=== PATIENT | female | born 1950 | race Caucasian/White ===

== ENCOUNTER → 2017-01-30 | Outpatient (CLI) | payer OTHER ==
[~2017-01-30] MED LIST: ASPI81TA28 PO; CITA40TA4 PO; DNSIS60 SQ; GABA600T PO; HYG/25 PO; MELO15TA4 PO; MELO7.5T5 PO; TRAZ100T29 PO; VRP40 PO; [UNRECOGNIZED DRUG - CODE] PO
--- NOTE | 2017-01-30 16:25 | MAMMOGRAPHY REPORT ---
BREAST MRI OF BOTH BREASTS : 01/30/2017 CLINICAL HISTORY: 67-year-old woman with bilateral subglandular silicone implants. Evaluate implant integrity. COMPARISON: Comparison is made to prior mammograms dated: 07/02/2007 and 05/27/2010. TECHNIQUE: The patient was placed in the prone position in a 1.5 Anisha magnet using a dedicated sam st coil. After a 3 plane localizing sequence, axial T2 STIR, axial T1 without fat saturation, axial T2 with fat saturation, sagittal T2 STIR, sagittal T2 FSE with fat saturation and axial T2 FSE with fat saturation images were obtained. No contrast was administered. FINDINGS: Bilateral subglandular silicone implants are identified. There is evidence of intracapsul ar and extracapsular rupture bilaterally. The largest amount of extracapsular silicone is located a long the superior and inferior aspects of the left implant, and along the inferolateral posterior as pect of the right implant. No suspicious axillary lymphadenopathy is seen bilaterally. IMPRESSION: ACR BI-RADS CATEGORY 2: BENIGN 1. Intracapsular and extracapsular rupture of bilateral subglandular silicone implants. 2. No suspicious axillary lymphadenopathy. 3. Mammograms have not been performed at this institution since 2009. If they have not been perfor med at an outside institution, would recommend annual screening mammograms, as mammography is the go ld standard for reducing breast cancer mortality. The patient will receive written notification of the results. Ruthie Palacios M.D. ay/:01/30/2017 15:33:26 [employer]: recreation leader, [facility] letter sent: Normal 1/2 BI-RADS Code: ACR BI-RADS Category 2: Benign
== END | disposition home or self-care (01) ==
LOC: C.MRI 09:38
PROVIDERS: ATTEND Plastic Surgery
DX: T85.49XA Other mechanical complication of breast prosthesis and implant, initial encounter (principal); Y83.1 Surgical operation with implant of artificial internal device as the cause of abnormal reaction of the patient, or of later complication, without mention of misadventure at the time of the procedure

== ENCOUNTER → 2017-03-23 | Outpatient (CLI) | payer OTHER ==
[2017-03-23 13:18] LABS: HEMATOCRIT 43.4 % (37-47); MEAN CELL VOLUME 92.9 fL (80-100); MEAN CORPUSCULAR HEMOGLOBIN 31.3 pg (25-34); MEAN CORPUSCULAR HGB CONC 33.6 g/dl (32-36); MEAN PLATELET VOLUME 9.1 fL (7.4-10.4); PLATELET COUNT 220 K/uL (130-400); RED BLOOD COUNT 4.67 M/uL (4.2-5.4); WHITE BLOOD COUNT 6.58 K/uL (4.8-10.8)
[2017-03-23 13:24] LABS: INR 1.1 (0.9-1.1); PARTIAL THROMBOPLASTIN RATIO 1.1; PROTHROMBIN TIME (PATIENT) 11.8 SECONDS (9.0-12.0)
[2017-03-23 13:41] LABS: POTASSIUM 4.2 mmol/L (3.5-5.1)
== END | disposition home or self-care (01) ==
LOC: C.CPL 12:31
PROVIDERS: ATTEND Physician Assistant
DX: Z01.810 Encounter for preprocedural cardiovascular examination (principal); Z01.812 Encounter for preprocedural laboratory examination

== ENCOUNTER → 2017-04-07 | Day surgery (SDC) | payer OTHER ==
[2017-03-24 14:00] VITALS: Ht 170.2 cm; Wt 61.4 kg
[~2017-04-07] VITALS: Ht 170.2 cm; Wt 61.4 kg
[~2017-04-07] MED LIST changes: +ACETAMINOPHEN 325 MG TAB PO PRN; +ATROPINE SULFATE 0.1 MG/ML 5ML SYR IV PRN; +BACITRACIN 50000 UNIT VIAL ONE; +BUPIVACAINE 0.25% 2.5MG/ML PF 10 ML VIAL ONE; +CEFAZOLIN 2000 MG/60 ML D5W IV SCH; +CEFAZOLIN SOD 1 GM VIAL ONE; +EpHEDrine SULFATE 50MG/5ML SYR ONE; +EpHEDrine SULFATE INJ 50 MG/ML AMP IV PRN; +EpHEDrine SULFATE INJ 50 MG/ML AMP ONE; +FENTANYL CITRATE INJ 50 MCG/1 ML 2 ML VIAL IV PRN; +FENTANYL CITRATE INJ 50 MCG/1 ML 2 ML VIAL ONE; +GENTAMICIN SULFATE 40 MG/ML 2 ML VIAL ONE; +LACTATED RINGER'S 1000ML 1,000 ML IV SCH; +LIDOCAINE HCL 2% 2 ML VIAL (20MG/ML) ONE; +LIDOCAINE/EPINEPHRINE 1% INJ 50 ML VIAL ONE; -MELO7.5T5 PO; +METOCLOPRAMIDE HCL INJ 5 MG/ML 2 ML VIAL IV PRN; +MIDAZOLAM HCL 1 MG/ML 2ML VIAL ONE; +ONDANSETRON INJ 2 MG/ML 2 ML VIAL IV PRN; +ONDANSETRON INJ 2 MG/ML 2 ML VIAL ONE; +OXYCODONE/ACETAMINOPHEN 5-325 TAB PO PRN; +PROPOFOL IV EMULSION 10 MG/ML 20 ML VIAL IV ONE; +SODIUM CHLORIDE 0.9% 1000ML 1,000 ML IV SCH; +SODIUM CHLORIDE 0.9% INJ 10 ML VIAL ONE; +WATER, STERILE FOR INJ 10 ML VIAL ONE
--- NOTE | 2017-04-07 09:06 | History & Physical Bridge - SC ---
H&P Re-Evaluation Bridge Note: I have examined the patient, reviewed the History & Physical and in the interval since the performance of the History & Physical I have noted the following changes of clinical significance: No changes noted
--- NOTE | 2017-04-07 12:47 | [facility] Post Operative Brief Note ---
Immediate Operative Summary Operative Date Apr 07, 2017. Pre-Operative Diagnosis Bilateral Intra & Extracapsular Rupture Silicone Implant Post-Operative Diagnosis Same Procedure(s) Performed Bilateral Capsulectomy With Breast Implant Replacement Using Silicone Gel- Filled Implants Surgeon Dr. Donovan Painter Airbrush Surgeon(s) Brenna Silvestre PA-C Estimated Blood Loss 20 ml Findings bilateral intra and extracapsular rupture, extensive calcifications Specimens A.) Ruptured Breast Implant & Capsule- Left B.) Ruptured Breast Implant & Capsule- Right Anesthesia general Complication(s) None Disposition Recovery Room / PACU
--- NOTE | 2017-04-07 12:51 | Discharge Instructions ---
Discharge Instructions Date of Service Apr 07, 2017. Admission Reason for Admission: B/L Intra & Extracapsular Rupture Silicone Implant Discharge Discharge Diagnosis / Problem: Breast Implant Rupture Discharge Goals Goal(s): Decrease discomfort Activity Recommendations Activity Limitations: per Instructions/Follow-up section ACTIVITY RECOMMENDATIONS: __Normal activities _x_No bending, lifting or straining __No driving __Driving allowed when you are off pain medications _x_Walking permitted __You should have help at home for ___ days DRESSINGS: __No dressings required _x_Keep dressings dry/in place until first office visit. Continue to wear bra __Remove dressings ___ and leave dressings off __Apply ice ___ days __Remove dressings and reapply garment __Apply antibiotic ointment (Bacitracin, Neosporin, etc) to wounds 3-4 times/ day for 10 days BATHING: _x_Keep dressings dry _x_Sponge bathing permitted __Showering permitted _x_No swimming, hot tubs or soaking in a tub MEDICATIONS: Resume previous medications unless instructed otherwise by your surgeon. _x_Do not use aspirin, Motrin, Advil or Ibuprofen as these may promote bleeding. Please use Tylenol. _x_Prescription(s) provided: antibiotics provided at your last office visit. Please start these today. A script for pain medication was also provided in your folder OTHER INSTRUCTIONS: __Record drain output 2-3 times per day SPECIAL CARE INSTRUCTIONS: * It is normal to have a mild fever after surgery. If your temperature is higher than 101.5 degrees F, please call the office at [phone]. * Constipation is a typical side effect of pain medication. An over-the- counter stool softener will help relieve this. * Leaking around surgical drains may occur and should not cause concern. Sometimes these drains become clogged. If this happens, remove the bulb and milk the clot out of the tube, then replace the bulb. * Drainage from wounds after liposuction is normal and should be expected. Garments will become soiled. You should protect furniture and bedding. This drainage should mostly subside within 2-3 days. Leave garments in place unless instructed to remove them. * If you have unusual drainage from a wound or are concerned you have an infection or have any questions or concerns, please call the office at [phone]. FOLLOW UP VISIT: If not already scheduled, please call the office, , when you return home after surgery to schedule an appointment to be seen in _3__ days. . Current Hospital Diet Patient's current hospital diet: Discharge Diet Recommended Diet: Regular Diet Procedures Procedures Performed: Bilateral Capsulectomy With Breast Implant Replacement Using Silicone Gel- Filled Implants Pending Studies Studies pending at discharge: yes List of pending studies: pathology Medical Emergencies . Who to Call and When: Medical Emergencies: If at any time you feel your situation is an emergency, please call 911 immediately. . Non-Emergent Contact Non-Emergency issues call your: Primary Care Provider, Surgeon . "Provider Documentation" section prepared by Angi Silvestre. . VTE Core Measure Inpt VTE Proph given/why not?: SCD's [place] Drug Monitoring Program Search Results: no issues identified
[2017-04-07 13:36] VITALS: TEMP 36.9
[2017-04-07 14:11] VITALS: BP 124/70; PULSE 84; O2SAT 99
--- NOTE | 2017-04-07 14:16 | Anesthesia Progress Nt - [facility] ---
Anesthesia Post Op Note Date & Time Apr 07, 2017 at 14:15 Vital Signs Pain Intensity: 4.0 Vital Signs Past 12 Hours Date Time Temp Pulse Resp B/P (MAP) Pulse Ox O2 Delivery O2 Flow Rate FiO2 04/07/17 14:11 84 16 124/70 (88) 99 Room Air 04/07/17 13:36 36.9 76 18 134/77 (96) 98 Room Air 04/07/17 13:29 36.8 78 18 138/69 95 Room Air 04/07/17 13:01 130/66 04/07/17 12:59 80 14 04/07/17 12:59 80 14 100 04/07/17 12:57 36.2 81 16 144/70 100 Mask 5 04/07/17 12:56 131/67 04/07/17 12:54 76 17 04/07/17 12:54 76 17 100 04/07/17 12:51 142/67 04/07/17 08:52 36.9 59 16 164/82 (109) 98 Room Air Notes Mental Status: alert / awake / arousable, participated in evaluation Pt Amnestic to Procedure: Yes Nausea / Vomiting: adequately controlled Pain: adequately controlled Airway Patency, RR, SpO2: stable & adequate BP & HR: stable & adequate Hydration State: stable & adequate Anesthetic Complications: no major complications apparent
--- NOTE | 2017-04-07 16:18 | OPERATIVE REPORT ---
DATE OF OPERATION: 04/07/2017 PREOPERATIVE DIAGNOSIS: Bilateral ruptured breast implants with intra and extracapsular rupture. POSTOPERATIVE DIAGNOSIS: Same. PROCEDURE: Bilateral open capsulectomy with removal of ruptured implants and replacement with new silicone implants. SURGEON: Dr. Yanet Donovan. MOBILE SALES EXPERT: Angi Silvestre PA-C. ANESTHESIA: General. COMPLICATIONS: None. INDICATION FOR THE PROCEDURE: The patient is a 67-year-old female, who presented to my office with multiple concerns, one of which was a history of breast augmentation performed in the glandular plane with silicone implants in 1978. Over the years, she noted a change in shape of the breasts as well as firmness and had not had a mammogram or any other evaluation performed in many years. An MRI was ordered, which showed bilateral intra and extracapsular rupture. We discussed options for removal and replacement. She desired to proceed. BRIEF DESCRIPTION OF THE PROCEDURE: The risks, benefits and alternatives of the procedure were explained to the patient, who agreed and signed consent. She was identified in the preoperative holding area. She was brought to the operating room, where she was positioned supine and placed under general anesthesia without incident. Surgical site and markings were reassessed. The patient was prepped and draped sterilely. Tegaderms were placed over both nipple-areolar complexes. I began with the left side. 1% lidocaine with epinephrine was used to anesthetize the planned incision as well as the breast parenchyma, of which there was very little. She had a prior incision from her augmentation, which was actually located rather mid breast and very lateral. I therefore discussed with her the option of creating a new incision in the inframammary fold preoperatively. This incision was made using a 15 blade scalpel and dissection was performed using electrocautery until the capsule was identified. It was noted to be in the subglandular plane. I dissected as much capsule as I could with the prosthesis in place, both anteriorly and posteriorly. I was unable to perform an "enbloc" capsulectomy and ultimately did incise the capsule in order to retrieve the implant, which was noted to be grossly ruptured. The capsule was about 3-5 mm in thickness and was heavily calcified. Implant material was removed and the remainder of the capsulectomy was performed using an Allis clamp, lighted retractor and electrocautery. Once I was able to retrieve the entire capsule, pocket was irrigated with Betadine soap and normal saline followed by triple antibiotic irrigation. The wound was packed. I placed a 175-mL silicone gel sizer into the pocket as she had a 175-mL implant in place previously. However, due to the significant amount of scarred breast tissue, capsule, and calcification, I felt that this was not adequate to fill the pocket. It was compared to the right breast and noted to be substantially smaller and the volume of removed tissue was greater than 50 mL. I therefore selected a 200-mL sizer implant, which fill the pocket reasonably well and was still slightly smaller than the right breast, which had been the patient's preference preoperatively. Sizer implant was removed and the wound was packed using lap sponges and 0.25% Marcaine plain. Attention was turned to the right side. A similar procedure was undertaken. Again, the capsule was noted to be heavily calcified and the implant had significant evidence of rupture, intra and extracapsularly. The capsule was able to be removed in its entirety. The wound was irrigated and packed. Attention was then turned to the left side. Throughout the procedure, gloves changed frequently. New drapes and new gloves were placed prior to placing a permanent prosthesis. I considered first to place a surgical drain, but given the small size of the pocket and the fact that we were replacing the implant, I elected not to do this. Once hemostasis was assured and the packing had been removed, a 200-mL smooth round high profile Doran silicone gel implant 200 mL was placed into the pocket. Wound was reapproximated using 2-0 Vicryl suture to approximate the breast tissue, 2-0 Vicryl deep dermal sutures, 3-0 PDS superficial dermal suture, and 3-0 Monocryl running subcuticular suture. The identical implant was selected for the right side. Dermabond was placed to both incisions. Dry dressings and a surgical bra were placed. The patient was awakened and transferred to recovery in satisfactory condition. I attest to the content of the Intraoperative Record and any orders documented therein. Any exceptions are noted below. YO
== END | disposition home or self-care (01) ==
LOC: X.SURG 08:37
PROVIDERS: ATTEND Plastic Surgery
DX: T85.49XA Other mechanical complication of breast prosthesis and implant, initial encounter (principal); F41.8 Other specified anxiety disorders; Z98.1 Arthrodesis status; Y81.2 Prosthetic and other implants, materials and accessory general- and plastic-surgery devices associated with adverse incidents

== ENCOUNTER → 2017-06-19 | Outpatient (CLI) | payer OTHER ==
[~2017-06-19] MED LIST changes: -ACETAMINOPHEN 325 MG TAB PO PRN; -ATROPINE SULFATE 0.1 MG/ML 5ML SYR IV PRN; -BACITRACIN 50000 UNIT VIAL ONE; -BUPIVACAINE 0.25% 2.5MG/ML PF 10 ML VIAL ONE; -CEFAZOLIN 2000 MG/60 ML D5W IV SCH; -CEFAZOLIN SOD 1 GM VIAL ONE; -EpHEDrine SULFATE 50MG/5ML SYR ONE; -EpHEDrine SULFATE INJ 50 MG/ML AMP IV PRN; -EpHEDrine SULFATE INJ 50 MG/ML AMP ONE; -FENTANYL CITRATE INJ 50 MCG/1 ML 2 ML VIAL IV PRN; -FENTANYL CITRATE INJ 50 MCG/1 ML 2 ML VIAL ONE; -GENTAMICIN SULFATE 40 MG/ML 2 ML VIAL ONE; -LACTATED RINGER'S 1000ML 1,000 ML IV SCH; -LIDOCAINE HCL 2% 2 ML VIAL (20MG/ML) ONE; -LIDOCAINE/EPINEPHRINE 1% INJ 50 ML VIAL ONE; -METOCLOPRAMIDE HCL INJ 5 MG/ML 2 ML VIAL IV PRN; -MIDAZOLAM HCL 1 MG/ML 2ML VIAL ONE; -ONDANSETRON INJ 2 MG/ML 2 ML VIAL IV PRN; -ONDANSETRON INJ 2 MG/ML 2 ML VIAL ONE; -OXYCODONE/ACETAMINOPHEN 5-325 TAB PO PRN; -PROPOFOL IV EMULSION 10 MG/ML 20 ML VIAL IV ONE; -SODIUM CHLORIDE 0.9% 1000ML 1,000 ML IV SCH; -SODIUM CHLORIDE 0.9% INJ 10 ML VIAL ONE; -WATER, STERILE FOR INJ 10 ML VIAL ONE
[2017-06-19 15:53] LABS: BASO % 1.1 %; BASO ABS # 0.08 K/uL (0-0.2); COMPLETE YES; EOS % 2.9 %; HEMATOCRIT 42.2 % (37-47); IG% 0.3 %; LYMPH % 27.2 %; LYMPH ABS # 1.98 K/uL (1.2-3.4); MEAN CELL VOLUME 90.2 fL (80-100); MEAN CORPUSCULAR HEMOGLOBIN 30.8 pg (25-34); MEAN CORPUSCULAR HGB CONC 34.1 g/dl (32-36); MONO % 7.3 %; NEUT % 61.2 %; PLATELET COUNT 275 K/uL (130-400); RED BLOOD COUNT 4.68 M/uL (4.2-5.4); WHITE BLOOD COUNT 7.29 K/uL (4.8-10.8)
[2017-06-19 16:07] LABS: INR 1.1 (0.9-1.1); PROTHROMBIN TIME (PATIENT) 11.7 SECONDS (9.0-12.0)
[2017-06-19 16:15] LABS: BLOOD UREA NITROGEN 18 mg/dl (7-18); BUN/CREATININE RATIO 16.7 (10-20); CALCIUM 9.2 mg/dl (8.5-10.1); CARBON DIOXIDE 31 mmol/L (21-32); CHLORIDE 102 mmol/L (98-107); GLUCOSE 91 mg/dl (70-99); POTASSIUM 3.9 mmol/L (3.5-5.1); SODIUM 138 mmol/L (136-145)
== END | disposition home or self-care (01) ==
LOC: C.LAB 14:43
PROVIDERS: ATTEND Plastic Surgery
DX: H02.833 Dermatochalasis of right eye, unspecified eyelid (principal); H02.836 Dermatochalasis of left eye, unspecified eyelid

== ENCOUNTER → 2017-07-07 | Day surgery (SDC) | payer OTHER ==
[2017-06-20 12:05] VITALS: Ht 170.2 cm; Wt 61.4 kg
[~2017-07-07] VITALS: Ht 170.2 cm; Wt 61.4 kg
[~2017-07-07] MED LIST changes: +ACETAMINOPHEN 325 MG TAB PO PRN; +ARTIFICIAL TEARS OP OINT 3.5 GM TUBE ONE; +ATROPINE SULFATE 0.1 MG/ML 5ML SYR IV PRN; +CEFAZOLIN 1000MG/55 ML D5W IV SCH; +ERYTHROMYCIN OP OINT 5 MG/GM 3.5 GM TUBE ONE; +EpHEDrine SULFATE 50MG/5ML SYR ONE; +EpHEDrine SULFATE INJ 50 MG/ML AMP IV PRN; +FENTANYL CITRATE INJ 50 MCG/1 ML 2 ML VIAL IV PRN; +FENTANYL CITRATE INJ 50 MCG/1 ML 2 ML VIAL ONE; +FLUMAZENIL 0.1 MG/1 ML 10 ML VIAL IV PRN; +GENTIAN VIOLET TOP SOLN DROP CHARGE ONE; +HYDROCODONE/ACETAMOPHEN 5/325MG TAB PO PRN; +HYDROmorphone INJ 2 MG/ML SYR/VIAL IV PRN; +LABETALOL HCL IV 5 MG/ML 20ML IV PRN; +LACTATED RINGER'S 1000ML 1,000 ML IV SCH; +LIDOCAINE HCL 2% 2 ML VIAL (20MG/ML) ONE; +LIDOCAINE/EPINEPHRINE 1% INJ 50 ML VIAL ONE; +MEPERIDINE HCL 25 MG/ML CARP IV PRN; +METOCLOPRAMIDE HCL INJ 5 MG/ML 2 ML VIAL IV PRN; +MIDAZOLAM HCL 1 MG/ML 2ML VIAL ONE; +MoRPHine SULFATE 2 MG/ML CARP IV PRN; +MoRPHine SULFATE 4 MG/ML 1 ML CARP\\VIAL IV PRN; +NALOXONE HCL 0.4 MG/1 ML VIAL/CARP IV PRN; +ONDANSETRON INJ 2 MG/ML 2 ML VIAL IV PRN; +ONDANSETRON INJ 2 MG/ML 2 ML VIAL ONE; +PHENYLEPHRINE 100MCG/ML 5ML SYR IV PRN; +POVIDONE-IODINE OP SOLN 30 ML BTL ONE; +PROPOFOL IV EMULSION 10 MG/ML 20 ML VIAL IV ONE; +SODIUM CHLORIDE 0.9% 1000ML 1,000 ML IV SCH
--- NOTE | 2017-07-07 09:36 | [facility] Post Operative Brief Note ---
Immediate Operative Summary Operative Date Jul 07, 2017. Pre-Operative Diagnosis Dermatochalasis Bilateral Lids Upper and Lower Post-Operative Diagnosis same Procedure(s) Performed Bilateral Upper And Lower Blepharoplasty; Left Medial Eyelid Skin Tag Removal--Cosmetic Surgery start at 0800, Cosmetic Surgery end at 0911. Surgeon Dr. Brenna Donovan Server Developer Surgeon(s) KE Cuadra Estimated Blood Loss 1cc Findings none Specimens none Anesthesia general Complication(s) None Disposition Recovery Room / PACU
--- NOTE | 2017-07-07 09:43 | Discharge Instructions-SurgCtr ---
Discharge Instructions Date of Service Jul 07, 2017. Visit Reason for Visit: Dermatochalasis Bilateral Lids Upper & Lower Discharge Discharge Diagnosis / Problem: dermatochalasis Discharge Goals Goal(s): Decrease discomfort, Improve function Medications Stopped Medications Name(s): Aspirin Meloxacam Activity Recommendations Activity Limitations: per Instructions/Follow-up section Anesthesia . Post Anesthesia Instructions: If you have had General Anesthesia or IV Sedation: * Do not drive today. * Resume driving when surgeon permits. * Do not make important decisions or sign legal documents today. * Call surgeon for: 1. Temperature elevations greater than 101 degrees F. 2. Uncontrollable pain. 3. Excessive bleeding. 4. Persistent nausea and vomiting. 5. Medication intolerance (nausea, vomiting or rash). * For nausea and vomiting use only clear liquids such as: tea, soda, bouillon until nausea subsides, then gradually increase diet as tolerated. * If you have any concerns or questions, call your surgeon's office. If physician is unavailable and it is an emergency, call 911 or go to the nearest emergency room. . Instructions / Follow-Up Instructions / Follow-Up ACTIVITY RECOMMENDATIONS: __Normal activities _x_No bending, lifting or straining __No driving _x_Driving allowed when you are off pain medications and you can see clearly _x_Walking permitted __You should have help at home for ___ days DRESSINGS: __No dressings required __Keep dressings dry/in place until first office visit __Remove dressings ___ and leave dressings off _x_Apply ice __2_ days and elevate head __Remove dressings and reapply garment __Apply antibiotic ointment as prescribed to wounds 3-4 times/day for 10 days BATHING: __Keep dressings dry _x_Sponge bathing permitted __Showering permitted _x_No swimming, hot tubs or soaking in a tub MEDICATIONS: Resume previous medications unless instructed otherwise by your surgeon. _x_Do not use aspirin, Motrin, Advil or Ibuprofen as these may promote bleeding. Please use Tylenol. _x_Prescription(s) provided: pain script, topical antibiotic provided in office OTHER INSTRUCTIONS: __Record drain output 2-3 times per day SPECIAL CARE INSTRUCTIONS: * It is normal to have a mild fever after surgery. If your temperature is higher than 101.5 degrees F, please call the office at [phone]. * Constipation is a typical side effect of pain medication. An over-the- counter stool softener will help relieve this. * Leaking around surgical drains may occur and should not cause concern. Sometimes these drains become clogged. If this happens, remove the bulb and milk the clot out of the tube, then replace the bulb. * Drainage from wounds after liposuction is normal and should be expected. Garments will become soiled. You should protect furniture and bedding. This drainage should mostly subside within 2-3 days. Leave garments in place unless instructed to remove them. * If you have unusual drainage from a wound or are concerned you have an infection or have any questions or concerns, please call the office at [phone]. FOLLOW UP VISIT: If not already scheduled, please call the office, , when you return home after surgery to schedule an appointment to be seen in _3__ days. Diet Recommendations Home Diet: resume previous diet Procedures Procedures Performed: Bilateral Upper And Lower Blepharoplasty; Left Medial Eyelid Skin Tag Removal--Cosmetic Surgery start at 0800, Cosmetic Surgery end at 0911. Pending Studies Studies pending at discharge: no Medical Emergencies . Who to Call and When: Medical Emergencies: If at any time you feel your situation is an emergency, please call 911 immediately. . Non-Emergent Contact Non-Emergency issues call your: Primary Care Provider, Surgeon . . "Provider Documentation" section prepared by Yanet Donovan. . [place] Drug Monitoring Program Search Results: patient reviewed within database, no issues identified ( documented in office chart)
[2017-07-07 10:41] VITALS: TEMP 36.6
--- NOTE | 2017-07-07 10:46 | Anesthesia Progress Nt - [facility] ---
Anesthesia Post Op Note Date & Time Jul 07, 2017 at 10:46 Vital Signs Pain Intensity: 0 Vital Signs Past 12 Hours Date Time Temp Pulse Resp B/P (MAP) Pulse Ox O2 Delivery O2 Flow Rate FiO2 07/07/17 10:41 36.6 69 14 145/78 (100) 96 Room Air 07/07/17 10:19 71 15 07/07/17 10:19 71 15 95 07/07/17 10:15 142/79 07/07/17 10:15 37.0 70 17 142/79 95 Room Air 07/07/17 10:14 73 10 07/07/17 10:14 74 10 95 07/07/17 10:10 137/76 07/07/17 10:09 72 13 07/07/17 10:09 73 13 97 07/07/17 10:05 139/76 07/07/17 10:04 75 18 98 07/07/17 10:04 75 18 07/07/17 10:00 131/86 07/07/17 09:59 72 11 100 07/07/17 09:59 71 11 07/07/17 09:55 137/67 07/07/17 09:54 75 14 99 07/07/17 09:54 77 14 07/07/17 09:50 137/71 07/07/17 09:49 75 13 07/07/17 09:49 76 13 99 07/07/17 09:46 123/70 07/07/17 09:45 137/81 07/07/17 09:44 79 20 07/07/17 09:44 36.8 79 16 137/81 98 Mask 6 07/07/17 09:44 78 20 98 07/07/17 06:35 36.6 59 16 128/81 (97) 98 Room Air Notes Mental Status: alert / awake / arousable, participated in evaluation Pt Amnestic to Procedure: Yes Nausea / Vomiting: adequately controlled Pain: adequately controlled Airway Patency, RR, SpO2: stable & adequate BP & HR: stable & adequate Hydration State: stable & adequate Anesthetic Complications: no major complications apparent
[2017-07-07 11:40] VITALS: BP 147/64; PULSE 64; O2SAT 100
--- NOTE | 2017-07-07 14:52 | Medical Student: [facility] ---
Immediate Operative Summary Operative Date Jul 07, 2017. Pre-Operative Diagnosis Bilateral Dermatochalasis upper and lower lids Post-Operative Diagnosis Same Procedure(s) Performed Bilateral upper and lower blepharoplasty with left medial eyelid skin tag removal Surgeon Dr. Donovan Puppy Trainer Surgeon(s) Myla Ortiz, MS3 Estimated Blood Loss 1cc Findings Normal eye architecture Specimens None Anesthesia General Complication(s) None Disposition Recovery Room / PACU
--- NOTE | 2017-07-08 08:46 | OPERATIVE REPORT ---
DATE OF OPERATION: 07/07/2017 PREOPERATIVE DIAGNOSES: Bilateral upper and lower eyelid dermatochalasis and skin tag, left lower medial eyelid. POSTOPERATIVE DIAGNOSES: Same. PROCEDURES: Bilateral upper and lower blepharoplasty and excision of left medial eyelid skin tag. SURGEON: Dr. Yanet Donovan. HEALTH ADMINISTRATION TEACHER: ARLENE Byrnes. ANESTHESIA: General. COMPLICATIONS: None. INDICATION FOR THE PROCEDURE: The patient is a 67-year-old female who presented to ca with excess skin of her upper eyelids, causing visual field obstruction. She also desired cosmetic improvement of her lower eyelids. After discussion, she desired to proceed with bilateral noncosmetic upper blepharoplasty and bilateral cosmetic lower blepharoplasty as well as excision of a small skin tag, medial left eyelid. BRIEF DESCRIPTION OF THE PROCEDURE: Risks, benefits, and alternatives of the procedure were explained to the patient, who agreed and signed consent. She was identified and marked in the preoperative holding area. She was brought to the operating room, where she was positioned supine and placed under anesthesia without incident. Surgical site was prepped and draped sterilely. A time-out procedure was performed. Markings were applied prior to beginning the procedure. I began with the upper eyelids. The supratarsal crease was marked bilaterally 8 mm above the ciliary margin in the midpupillary line. She has reasonably symmetric lid creases and this mary was applied in the naturally occurring fold. The markings were extended medially, taking care not to cross the medial punctum and were carried out laterally into the lateral canthal area. Superiorly, the superior incision was marked greater than 1 cm below the eyebrow, resulting in a skin resection of approximately 1.3 cm. Following the application of the markings, protectors with Lacri-Lube were placed. I began with the left side. 1% lidocaine with epinephrine was used to anesthetize the left upper eyelid. The left lower lid was injected medially to allow for removal of skin tag. A curved iris scissor and a Moralez forceps were used to remove this small tag. I then began with the upper blepharoplasty. A 15 blade scalpel was used to make the incision through the skin down to orbicularis muscle. Electrocautery was used to remove skin from the orbicularis oculi musculature from the lateral to medial direction. Once this was removed, hemostasis was achieved with electrocautery. A small strip of orbicularis oculi musculature was removed medially to expose the orbital septum. Incision was made through the orbital septum allowing return of fat from the medial compartment. There was a significant amount of fat noted and therefore, it was excised. Care was taken not to over resect the medial fat, taking only what came to the incision easily. Once this was achieved, hemostasis was achieved with electrocautery. A similar procedure was undertaken on the right side. Once this was performed, we began the cosmetic portion of the procedure. I returned to the left side and marked the lower lid incision about 3 mm inferior to the ciliary margin extending from the medial punctum into the lateral canthal area. The lower lid down to the orbital rim was injected with 1% lidocaine with epinephrine. I began the incision laterally using a 15 blade scalpel and then used a straight iris scissor to undermine the skin above the orbicularis muscle. The incision was then made using a straight iris. I began to elevate a skin muscle flap. I used electrocautery. Care was taken to leave about 4 mm of orbicularis along the orbital septum and then, the dissection plane was transitioned posterior to the orbicularis muscle. Dissection was carried down to the orbital rim in this plane. I then made 3 separate small incisions within the orbital septum to allow exposure to the fat compartments. Fat was resected from the medial, middle and lateral compartments using electrocautery. Care was taken not to over resect and cautery was used to cauterize down any additional fat in this area. Once satisfied with the resection, the lower lid skin and orbicularis was redraped and skin excision was marked. About 3 mm of skin was resected laterally and this was tapered medially. Once this was achieved, a lateral canthopexy suture was placed using a 5-0 PDS to create a canthopexy suture through periosteum of the left orbital rim, which was then passed around the lateral canthal tendon. When I was satisfied with the strength of this suture, the skin muscle flap was then tacked down to this suture and tied into place with controlled tension. Following this, 6-0 nylon sutures were used to reapproximate the lower eyelid incision. Similar procedure was undertaken on the right side. Following this, a cosmetic time was ended and closure of the upper lid incisions was performed. This was accomplished using 6-0 nylon interrupted sutures taking a bite of orbicularis muscle with each suture. Following end of the case, there was reasonable symmetry, lids were able to be closed without lagophthalmos. Antibiotic ointment was applied to the incisions. Corneal protectors were removed and the eyes were flushed with BSS prior to awakening the patient. The patient was awakened and transferred to recovery room in satisfactory condition. I attest to the content of the Intraoperative Record and any orders documented therein. Any exception s are noted below.
== END | disposition home or self-care (01) ==
LOC: X.SURG 06:15
PROVIDERS: ATTEND Plastic Surgery
DX: H02.834 Dermatochalasis of left upper eyelid (principal); H02.835 Dermatochalasis of left lower eyelid; H02.831 Dermatochalasis of right upper eyelid; H02.832 Dermatochalasis of right lower eyelid; L91.8 Other hypertrophic disorders of the skin; I10 Essential (primary) hypertension; G35 Multiple sclerosis; F41.9 Anxiety disorder, unspecified; G47.33 Obstructive sleep apnea (adult) (pediatric); Z98.1 Arthrodesis status

== ENCOUNTER 2018-10-22 05:28 | Inpatient (IN) ==
--- NOTE | 2018-09-25 10:02 | PAT Medication Instructions ---
Medication Instructions Date of Service September 25, 2018 Home Medications aripiprazole [Abilify] 5 mg PO QAM aspirin [Aspir-Low] 81 mg PO QAM buspirone 5 mg PO BID desvenlafaxine succinate [Pristiq] 25 mg PO QAM dextroamphetamine [Dexedrine Spansule] 5 mg PO TID hydrochlorothiazide 12.5 mg PO QAM valacyclovir [Valtrex] 500 mg PO DAILY NEEDED verapamil 40 mg PO TID denosumab [Prolia] 1 dose SUBCUT DIRECTED prazosin 1 mg PO HS trazodone 150 mg PO HS Continue as directed denosumab [Prolia] 1 dose SUBCUT DIRECTED ASK your prescriber and surgeon aspirin [Aspir-Low] 81 mg PO QAM DO NOT take the morning of surgery hydrochlorothiazide 12.5 mg PO QAM Take morning of surgery With a small sip of water, OTHERWISE NOTHING TO EAT OR DRINK AFTER MIDNIGHT: aripiprazole [Abilify] 5 mg PO QAM buspirone 5 mg PO BID desvenlafaxine succinate [Pristiq] 25 mg PO QAM dextroamphetamine [Dexedrine Spansule] 5 mg PO TID valacyclovir [Valtrex] 500 mg PO DAILY NEEDED verapamil 40 mg PO TID Take evening before surgery buspirone 5 mg PO BID dextroamphetamine [Dexedrine Spansule] 5 mg PO TID verapamil 40 mg PO TID prazosin 1 mg PO HS trazodone 150 mg PO HS Other Notes If you have any questions please call us at [phone] or [phone] or [phone] or [phone]
--- NOTE | 2018-09-25 11:04 | Anesthesiology Consultation ---
Date of Service September 25, 2018 Assessment & Plan (1) Encounter for pre-operative examination: Chart Review Chart Review: Acceptable Risk for Surgery and Patient seen in Pre Admission Testing Consults Requested none Teaching & Discussion Pre-Anesthesia Teaching/Discussion Notes: Instructed NPO after midnight before surgery, except medications with 15 cc of water. Medication instructions provided according to the PAT guidelines. History Surgery Operation Date: 10/22/18 07:45 Proposed Procedures p C5-C6 Anterior Cervical Discectomy and Fusion - Nabeel Murillo DO Height/Weight Height: 5 ft 7 in Weight: 62.4 kg Allergies Allergy/AdvReac Type Severity Reaction Status Date / Time Bactrim Allergy Unknown "WIPES OUT Verified 07/07/17 06:31 INTESTINES" sulfamethoxazole Allergy Unknown "WIPES OUT Verified 09/21/18 12:09 INTESTINES" trimethoprim Allergy Unknown "WIPES OUT Verified 09/21/18 12:09 INTESTINES" VELMA Inhibitors AdvReac Unknown COUGH Verified 09/21/18 12:09 lisinopril AdvReac Unknown COUGH Verified 09/21/18 12:09 Medications Home Medications Medication Instructions Recorded Confirmed Last Taken aripiprazole [Abilify] 5 mg PO QAM 08/07/18 09/21/18 Unknown aspirin [Aspir-Low] 81 mg PO QAM 08/07/18 09/21/18 Unknown buspirone 5 mg PO BID 08/07/18 09/21/18 Unknown desvenlafaxine succinate [Pristiq] 25 mg PO QAM 08/07/18 09/21/18 Unknown dextroamphetamine [Dexedrine 5 mg PO TID 08/07/18 09/21/18 Unknown Spansule] hydrochlorothiazide 12.5 mg PO QAM 08/07/18 09/21/18 Unknown valacyclovir [Valtrex] 500 mg PO DAILY PRN 08/07/18 09/21/18 Unknown verapamil 40 mg PO TID 08/07/18 09/21/18 Unknown denosumab [Prolia] 1 dose SUBCUT UD 09/21/18 09/21/18 Unknown prazosin 1 mg PO HS 09/21/18 09/21/18 Unknown trazodone 150 mg PO HS 09/21/18 09/21/18 Unknown Past Medical History Medical History Hypertension (Chronic) MS (multiple sclerosis) (Chronic) F/U DR ARAGON-EXERCISES 3 X A WEEK-DX'D 1996-SOME BALANCE ISSUES Anxiety Cardiac murmur HX A CHILD Chronic back pain CERVICAL PAIN/LUMBAR PAIN Depression Hx of osteoporosis Sleep apnea CPAP-WILL BRING DOS Past Family History Family History Father No significant family history Past Surgical History Surgical History History of arthroscopy R SHOULDER X 2 History of carpal tunnel release LEFT History of lumbar fusion History of open reduction and internal fixation (ORIF) procedure LEFT WRIST Hx of breast augmentation BILAT Past Anesthesia History No Hx of Anesthesia Complications and No Family Hx of Anesthesia Complications History of PONV No Motion Sickness Screening History of Motion Sickness: Yes (ON AMUSEMENT PARK RIDES) STOP BANG Total 5 Social History Smoking Status: Never smoker Do You Dip or Chew Tobacco: No Hx Alcohol Use: Yes Alcohol type: wine and hard liquor alcohol intake frequency: 0-2 drinks per day Hx Substance Use: No Exercise / Class Metabolic Activity II 4-5 Yardwork/Stairs/Walk up hill (EXERCISES 3 DAYS A WEEK AT THE [facility]. ABLE TO CLIMB FOS. DENIES SOB OR CP. ) Review of Systems Patient denies chest pain, shortness of breath, dyspnea on exertion, reflux, cough, wheezing, palpitations. +joint pain (shoulders) Physical Exam Vital Signs BP: 130/84 P: 80 R: 14 T: 98.5 SPO2: 98% on RA ENMT Mouth: + dental restorations Thyromental Distance: < 3.5 Finger Breadths (3) Mallampati Class: II Neck normal visual inspection, trachea midline and + limited neck extension Respiratory normal respiratory effort Auscultation: lungs clear to auscultation bilaterally Cardiovascular Rate/Rhythm: regular rate and regular rhythm Heart Sounds: no murmur Vessels: no carotid bruit Neurologic moves all extremities Psychiatric Orientation: alert and oriented x 3 Testing Electrocardiogram Date: 06/07/18 Findings: + NSR @ (68) Chest X-Ray Date: 09/25/18 Findings: + NAD (Chronic changes) FINDINGS: Lungs are clear. Mild emphysematous change. Diaphragms smooth. Partially calcified breast implants are again noted bilaterally. Other Testing CT OF THE THORACIC SPINE WITHOUT CONTRAST 08/07/18: IMPRESSION: 1. No acute thoracic spine fracture or subluxation. 2. Slight loss of height of multiple upper to midthoracic vertebral bodies which is likely chronic. 3. Mild multilevel degenerative disc disease. No central canal stenosis by CT. Laboratory Results 09/25/18 11:20 09/25/18 11:20 Blood Type O Positive 09/25/18 11:20 Antibody Screen NEGATIVE 09/25/18 11:20 PT 11.4 Seconds (9.0-12.0) 09/25/18 11:20 INR 1.1 (0.9-1.1) 09/25/18 11:20 APTT 26.6 Seconds (21.0-31.0) 09/25/18 11:20 Urine Color Yellow 09/25/18 11:20 Urine Appearance Clear (Clear) 09/25/18 11:20 Urine pH 6.5 (4.5-7.5) 09/25/18 11:20 Ur Specific [place] 1.020 (1.000-1.030) 09/25/18 11:20 Urine Protein Negative (Negative) 09/25/18 11:20 Urine Glucose (UA) Negative (Negative) 09/25/18 11:20 Urine Ketones Negative (Negative) 09/25/18 11:20 Urine Nitrite Negative (Negative) 09/25/18 11:20 Ur Leukocyte Esterase Negative (Negative) 09/25/18 11:20
--- NOTE | 2018-09-25 11:42 | XRay Report ---
XR chest Pre-admission PA/Lat CLINICAL HISTORY: pat preoperative evaluation COMPARISON STUDY: 05/22/2013 FINDINGS: Lungs are clear. Mild emphysematous change. Diaphragms smooth. Partially calcified breast i mplants are again noted bilaterally. IMPRESSION: Chronic change. No acute process. The above report was generated using voice recognition software. It may contain grammatical, syntax or spelling errors. Electronically signed by: Santy Fu M.D. 09/25/2018 11:41 AM
[2018-09-25 13:28] LABS: Appearance Urine Clear (Clear); Bilirubin Urine Negative (Negative); Color Urine Yellow; Glucose Urine UA Negative (Negative); Ketones Urine Negative (Negative); Leukocyte Esterase Urine Negative (Negative); Nitrite Urine Negative (Negative); Protein Urine Negative (Negative); Urobilinogen Urine Negative (Negative); pH Urine 6.5 (4.5-7.5)
[2018-09-25 13:29] LABS: Basophils # (auto) 0.06 K/uL (0-0.2); Basophils % (auto) 0.7 %; Eosinophils % (auto) 1.2 %; Hemoglobin 13.8 g/dL (12.0-16.0); Immature Granulocytes # (auto) 0.02 K/uL (0.00-0.02); Immature Granulocytes % (auto) 0.2 %; Lymphocytes # (auto) 1.71 K/uL (1.2-3.4); Lymphocytes % (auto) 19.7 %; Mean Corpuscular Hgb Conc 32.9 g/dL (32-36); Mean Corpuscular Volume 90.5 fL (80-100); Monocytes # (auto) 0.65 K/uL (0.11-0.59); Monocytes % (auto) 7.5 %; Neutrophils # (auto) 6.13 K/uL (1.4-6.5); Neutrophils % (auto) 70.7 %; Platelet Count 228 K/uL (130-400); RDW Coefficient of Variation 13.2 % (11.5-14.5); RDW Standard Deviation 43.3 fL (36.4-46.3); Red Blood Count 4.64 M/uL (4.2-5.4); White Blood Count 8.67 K/uL (4.8-10.8)
[2018-09-25 13:38] LABS: BUN Creatinine Ratio 18.6 (10-20); Calcium 9.5 mg/dl (8.5-10.1); Creatinine Clr Calc Pharmacy 55.7 ml/min; Est GFR (African American) 72.2; Est GFR (Non-African American) 62.3; Potassium 3.9 mmol/L (3.5-5.1)
[2018-09-25 13:39] LABS: INR 1.1 (0.9-1.1); Partial Thromboplastin Time 26.6 Seconds (21.0-31.0); Prothrombin Time 11.4 Seconds (9.0-12.0)
[2018-10-22] MEDS ORDERED: GABAPENTIN 300 MG PO SCH ×3 (06:00)
[2018-10-22] MEDS ORDERED: CEFAZOLIN 1000MG 1,000 MG/7.5 ML SYR IV SCH (06:00)
[2018-10-22] MEDS ORDERED: ACETAMINOPHEN 500 MG TAB PO SCH (06:00)
[2018-10-22] MEDS ORDERED: ACETAMINOPHEN SOLN 160 MG/5 ML BTL PO SCH (06:00)
[2018-10-22] MEDS ORDERED: LR 15ML/HR IV SCH (06:00)
[2018-10-22] MEDS ORDERED: ACETAMINOPHEN SOLN 500 MG/15.62 ML UDP PO SCH (06:00)
[2018-10-22] MEDS ORDERED: fentaNYL citrate 100 MCG/2 ML VIAL ONE ×5 (06:23→09:12)
[2018-10-22] MEDS ORDERED: HYDROmorphone INJ 2 MG/ML SYR/VIAL ONE (06:23)
[2018-10-22] MEDS ORDERED: MIDAZOLAM HCL 1 MG/ML 2ML VIAL ONE (06:23)
[2018-10-22] MEDS ORDERED: DEXAMETHASONE SOD INJ 4 MG/ML VIAL ONE (06:24)
[2018-10-22] MEDS ORDERED: GLYCOPYRROLATE 0.2 MG/ML VIAL ONE (06:24)
[2018-10-22] MEDS ORDERED: PROPOFOL IV EMULSION 10 MG/ML 20 ML VIAL IV ONE ×2 (06:24→09:06)
[2018-10-22] MEDS ORDERED: ONDANSETRON INJ 2 MG/ML 2 ML VIAL ONE (06:24)
[2018-10-22] MEDS ORDERED: NEOSTIGMINE METHYLSULFATE 1 MG/ML 10ML VIAL ONE (06:24)
[2018-10-22] MEDS ORDERED: LIDOCAINE HCL 2% 2 ML VIAL/AMP(20MG/ML) INFIL ONE (06:24)
[2018-10-22] MEDS ORDERED: ROCURONIUM BROMIDE 10 MG/ML 5 ML VIAL ONE (06:24)
[2018-10-22] MEDS ORDERED: BACITRACIN INJ 50,000 UNIT VIAL ONE (07:19)
[2018-10-22] MEDS ORDERED: ONDANSETRON INJ 2 MG/ML 2 ML VIAL IV PRN ×2 (07:27→11:26)
[2018-10-22] MEDS ORDERED: PROMETHAZINE HCL 12.5 MG in SODIUM CHLORIDE 0.9% 50 ML IV PRN (07:27)
[2018-10-22] MEDS ORDERED: HYDROmorphone INJ 1 MG/ML SYRINGE IV PRN (07:27)
[2018-10-22] MEDS ORDERED: ePHEDrine sulfate 50 MG/ML AMP IV PRN (07:27)
[2018-10-22] MEDS ORDERED: ATROPINE SULFATE 0.1 MG/ML 5ML SYR IV PRN (07:27)
[2018-10-22] MEDS ORDERED: fentaNYL citrate 100 MCG/2 ML VIAL IV PRN (07:27)
--- NOTE | 2018-10-22 07:32 | History & Physical Bridge Note ---
Date of Service October 22, 2018 History & Physical Bridge Note I have examined the patient, reviewed the History & Physical and in the interval since the performance of the History & Physical I have noted the following changes of clinical significance: no changes noted
--- NOTE | 2018-10-22 07:33 | History & Physical Report ---
Date of Service October 22, 2018 Assessment & Plan (1) Cervical stenosis of spinal canal: Anterior cervical discectomy and fusion C5-6 Present on Admission?: Yes History of Present Illness Chief Complaint: Neck and arm pain Primary Care Provider: Sheri Rangel MD This is a 68-year-old female with chronic persistent neck and arm pain that failed extensive course of nonoperative care and is here for surgical intervention. Allergies Allergy/AdvReac Type Severity Reaction Status Date / Time Bactrim Allergy Unknown "WIPES OUT Verified 07/07/17 06:31 INTESTINES" sulfamethoxazole AdvReac Intermediate "WIPES OUT Verified 10/22/18 07:30 INTESTINES" trimethoprim AdvReac Intermediate "WIPES OUT Verified 10/22/18 07:30 INTESTINES" VELMA Inhibitors AdvReac Mild COUGH Verified 10/22/18 07:30 lisinopril AdvReac Mild COUGH Verified 10/22/18 07:30 Home Medications Home Medications Medication Instructions Recorded Confirmed Type aripiprazole [Abilify] 5 mg PO QAM 08/07/18 10/22/18 History aspirin [Aspir-Low] 81 mg PO QAM 08/07/18 10/22/18 History buspirone 5 mg PO BID 08/07/18 10/22/18 History desvenlafaxine succinate [Pristiq] 25 mg PO QAM 08/07/18 10/22/18 History dextroamphetamine [Dexedrine 5 mg PO TID 08/07/18 10/22/18 History Spansule] hydrochlorothiazide 12.5 mg PO QAM 08/07/18 10/22/18 History valacyclovir [Valtrex] 500 mg PO DAILY PRN 08/07/18 10/22/18 History verapamil 40 mg PO TID 08/07/18 10/22/18 History denosumab [Prolia] 1 dose SUBCUT UD 09/21/18 10/22/18 History prazosin 1 mg PO HS 09/21/18 10/22/18 History trazodone 150 mg PO HS 09/21/18 10/22/18 History Past Med/Surg History Medical History Hypertension (Chronic) MS (multiple sclerosis) (Chronic) F/U DR ARAGON-EXERCISES 3 X A WEEK-DX'D 1996-SOME BALANCE ISSUES Anxiety Cardiac murmur HX A CHILD Chronic back pain CERVICAL PAIN/LUMBAR PAIN Depression Hx of osteoporosis Sleep apnea CPAP-WILL BRING DOS Surgical History History of arthroscopy R SHOULDER X 2 History of carpal tunnel release LEFT History of lumbar fusion History of open reduction and internal fixation (ORIF) procedure LEFT WRIST Hx of breast augmentation BILAT Family History Father No significant family history Social History Current Living Situation: Alone Other Information That Helps Us Care for You: No Feels Safe at Home: Yes Safety Concerns: Feels Safe At This Time Smoking Status: Never smoker Do You Dip or Chew Tobacco: No Hx Alcohol Use: Yes Alcohol type: wine and hard liquor Alcohol Intake Frequency : 0-2 drinks per day Hx Substance Use: No Beliefs That Will Affect Care: None Preferred Language: [place]raini Communication Ability: Effective Tail Dogger Required: No Physical Exam 2 Vital Signs (Past 24 Hours): Last Vital Signs Temp 36.7 C 10/22/18 05:46 Pulse 78 10/22/18 05:46 Resp 18 10/22/18 05:46 BP 146/73 H 10/22/18 05:46 Pulse Ox 95 10/22/18 05:46 Results & Data Medications Administered Acetaminophen (Tylenol) 1,000 mg PO PREOP CORBY Stop: 10/22/18 12:00 Last Admin: 10/22/18 06:31 Dose: 1,000 mg Gabapentin (Neurontin) 300 mg PO TODAY@0600 CORBY Stop: 10/22/18 12:00 Last Admin: 10/22/18 06:30 Dose: 300 mg Lactated Ringer's (Lr) 1,000 mls @ 15 mls/hr IV .Q24H CORBY Stop: 10/23/18 05:59 Last Admin: 10/22/18 05:59 Dose: 15 mls/hr
[2018-10-22] MEDS ORDERED: raNITIdine HCl 25 MG/ML VIAL ONE (08:19)
[2018-10-22] MEDS ORDERED: FLOSEAL HEMOSTATIC MATRIX 10ML TOP ONE (09:03)
--- NOTE | 2018-10-22 09:10 | Operative Report ---
Post Operative Report Date of Surgery October 22, 2018 Pre & Post Diagnosis Operation Date: 10/22/18 07:45 Pre-Op Diagnosis: Cervical spinal stenosis with myeloradiculopathy Post-Op Diagnosis: Same Procedure Operation Date: 10/22/18 07:45 Actual Procedures #1 anterior cervical discectomy bilateral foraminotomies C5-6. #2 anterior cervical arthrodesis C5-6. #3 placement of cortical allograft filled with DBM 8 mm in height C5-6. #4 application powell plate and screws across C5-6. Surgeon Nabeel Murillo DO [place] None Estimated Blood Loss 20 Findings Consistent with Post-Op Diagnosis Specimens None Description of Procedure Patient was met with preoperatively case discussed all questions addressed. After informed consent obtained patient was taken to the operative suite underwent intubation and placed in supine position Davon table with a [place] overhead line worker. All bony prominences well-padded eyes inspected to ensure no external pressure placed upon. This point the anterior cervical spine was prepped and draped in a sterile fashion. The assistance of fluoroscopy identified the C5-6 disc space and a transverse incision was placed along the right anterior aspect of the cervical spine overlying fusion. Sharp dissection with the assistance of bipolar electron is performed down to and exposing the anterior cervical spine at C5-6. Self-retaining retractors placed. Verified my position with fluoroscopy. A complete discectomy was then performed up to the uncovertebral joints bilaterally. [place] distracting pins utilized to assist in visualization. I removed all posterior annular fibers longitudinal ligament bilateral foraminotomies performed. Endplates and bur to subcortical bleeding bone and 8 mm cortical allograft filled with DBM tamped in position. Distraction apparatus was removed all anterior osteophytes produce smooth cortical surface and a powell plate screws applied with the assistance of fluoroscopy. Incision was then copious irrigated explored to ensure no damage to surrounding structures remaining bleeding and closed with 2 Vicryl fashion for Monocryl for final closure Steri-Strip sterile dressings placed patient will continue to PACU stable condition. Please note a 10 round JOLENE drain was also placed prior to closure. I attest to the content of the Intraoperative Record and any orders documented therein. Any exceptions are noted below.
--- NOTE | 2018-10-22 09:38 | Fluoroscopy Report ---
FL cervical 2-3V CLINICAL HISTORY: ACDF C5-6operative evaluation COMPARISON STUDY: None FLUOROSCOPY TIME: 10 seconds NUMBER OF FLUOROSCOPIC IMAGES: 3 FINDINGS: Findings consistent with an anterior fusion at C5-C6 level. Disc spacers present. Moderate degenerative disc changes noted throughout the remainder the cervical region. IMPRESSION: Anterior cervical fusion at C5-C6. The above report was generated using voice recognition software. It may contain grammatical, syntax or spelling errors. Electronically signed by: Santy Fu M.D. 10/22/2018 9:37 AM
--- NOTE | 2018-10-22 10:43 | Anesthesiology Progress Note ---
Date of Service October 22, 2018 Anesthesia Post Procedure Vital Signs Vital Signs: Temp Pulse Pulse Pulse Resp BP BP 10/22/18 10:10 62 14 10/22/18 10:06 60 13 146/76 H 10/22/18 10:05 59 L 12 10/22/18 10:01 61 12 157/69 H 10/22/18 10:00 65 13 10/22/18 09:56 62 12 150/75 H 10/22/18 09:55 65 15 10/22/18 09:51 66 151/76 H 10/22/18 09:50 69 13 10/22/18 09:46 66 156/72 H 10/22/18 09:45 68 10/22/18 09:41 68 14 151/75 H 10/22/18 09:40 71 69 14 151/75 H 10/22/18 09:36 67 15 146/74 H 10/22/18 09:35 71 16 10/22/18 09:34 73 14 146/75 H 10/22/18 09:33 36.2 C L 82 22 146/75 H 10/22/18 05:46 36.7 C 78 18 146/73 H Pulse Ox 10/22/18 10:10 100 10/22/18 10:06 100 10/22/18 10:05 100 10/22/18 10:01 100 10/22/18 10:00 100 10/22/18 09:56 100 10/22/18 09:55 100 10/22/18 09:51 100 10/22/18 09:50 100 10/22/18 09:46 100 10/22/18 09:45 100 10/22/18 09:41 100 10/22/18 09:40 100 10/22/18 09:36 100 10/22/18 09:35 100 10/22/18 09:34 100 10/22/18 09:33 100 10/22/18 05:46 95 Pain Intensity Neck: Pain Intensity: 0 Notes Mental Status: alert / awake / arousable and participated in evaluation Patient Amnestic to Procedure: Yes Nausea / Vomiting: adequately controlled Pain: adequately controlled Airway Patency, RR, SpO2: stable & adequate BP & HR: stable & adequate Hydration State: stable & adequate Anesthetic Complications: no major complications apparent and Pt Satisfied with anesthetic care
[2018-10-22] MEDS ORDERED: ACETAMINOPHEN 1,000 MG/100 ML VIAL IV PRN (11:26)
[2018-10-22] MEDS ORDERED: HYDROmorphone INJ 0.5 MG/0.5 ML SYR IV PRN (11:26)
[2018-10-22] MEDS ORDERED: DO NOT ADMINISTER PNEUMOCOCCAL VACCINE PRN (11:26)
[2018-10-22] MEDS ORDERED: DEXAMETHASONE SOD PHOSPHATE 8 MG in SYRINGE 0 ML IV PRN (11:26)
[2018-10-22] MEDS ORDERED: MAGNESIUM HYDROXIDE SUSP 30 ML UDC PO PRN (11:26)
[2018-10-22] MEDS ORDERED: NALOXONE HCL 0.4 MG/1 ML VIAL/CARP IV PRN (11:26)
[2018-10-22] MEDS ORDERED: DO NOT ADMINISTER FLU VACCINE PRN (11:26)
[2018-10-22] MEDS ORDERED: DiphenhydrAMINE HCL 50 MG/ML VIAL IV PRN (11:26)
[2018-10-22] MEDS ORDERED: LORazepam 0.5 MG TAB PO PRN (11:26)
[2018-10-22] MEDS ORDERED: LORazepam 0.5 MG/1 ML VIAL IV PRN (11:26)
[2018-10-22] MEDS ORDERED: RACEPINEPHRINE 2.25% NEBU SOLN 0.5 ML VIAL INH PRN (11:26)
[2018-10-22] MEDS ORDERED: SCOPOLAMINE 1.5 MG TDSY TD SCH (12:00)
[2018-10-22] MEDS: SODIUM CHLORIDE 0.9% 1000ML 1,000 ML IV SCH (12:34)
[2018-10-22] MEDS: VERAPAMIL HCL 40 MG TAB PO SCH ×2 (13:05→20:18)
[2018-10-22] MEDS: OXYCODONE HCL IR 5 MG TAB (IMMEDIATE RELEASE) PO PRN ×2 (13:06→20:16)
[2018-10-22] MEDS ORDERED: Nursing to Pharmacy Communication ONE (15:58)
[2018-10-22] MEDS: CHECK SCOPOLAMINE PATCH PLACEMENT SCH (16:33)
[2018-10-22] MEDS: CEFAZOLIN 1000MG 1,000 MG/7.5 ML SYR IV SCH (16:33)
[2018-10-22] MEDS: DOCUSATE SODIUM SYRUP 100 MG/10 ML UDC PO SCH (20:20)
[2018-10-22] MEDS ORDERED: PRAZOSIN HCL 1 MG CAP PO SCH (21:00)
[2018-10-22] MEDS ORDERED: TRAZODONE HCL 50 MG TAB PO SCH (21:00)
[2018-10-22] MEDS ORDERED: DOCUSATE SODIUM 100 MG CAP PO SCH (21:00)
[2018-10-22] MEDS ORDERED: BusPIRone 15 MG TAB PO SCH (21:00)
[2018-10-23] MEDS: SODIUM CHLORIDE 0.9% 1000ML 1,000 ML IV SCH (00:21)
[2018-10-23] MEDS: CEFAZOLIN 1000MG 1,000 MG/7.5 ML SYR IV SCH ×2 (00:27→07:50)
[2018-10-23] MEDS: CHECK SCOPOLAMINE PATCH PLACEMENT SCH ×2 (00:27→07:50)
[2018-10-23] MEDS: OXYCODONE HCL IR 5 MG TAB (IMMEDIATE RELEASE) PO PRN ×2 (04:14→10:03)
[2018-10-23] MEDS: VERAPAMIL HCL 40 MG TAB PO SCH (08:30)
[2018-10-23] MEDS: DOCUSATE SODIUM SYRUP 100 MG/10 ML UDC PO SCH (08:31)
[2018-10-23] MEDS ORDERED: hydroCHLOROthiazide 25 MG TAB PO SCH (09:00)
[2018-10-23] MEDS ORDERED: ASPIRIN 81 MG ECTAB PO SCH (09:00)
[2018-10-23] MEDS ORDERED: ARIPiprazole 5 MG TAB PO SCH (09:00)
--- NOTE | 2018-10-23 11:56 | Discharge Summary ---
Date of Service October 23, 2018 Admission HPI Per Admitting Provider This is a 68-year-old female with chronic persistent neck and arm pain that failed extensive course of nonoperative care and is here for surgical intervention. Principal Diagnosis Cervical spinal stenosis Discharge Data Allergies Allergy/AdvReac Type Severity Reaction Status Date / Time Bactrim Allergy Unknown "WIPES OUT Verified 07/07/17 06:31 INTESTINES" sulfamethoxazole AdvReac Intermediate "WIPES OUT Verified 10/22/18 07:30 INTESTINES" trimethoprim AdvReac Intermediate "WIPES OUT Verified 10/22/18 07:30 INTESTINES" VELMA Inhibitors AdvReac Mild COUGH Verified 10/22/18 07:30 lisinopril AdvReac Mild COUGH Verified 10/22/18 07:30 Procedures Performed Operation Date: 10/22/18 07:45 Actual Procedures p C5-C6 Anterior Cervical Discectomy and Fusion(Not Applicable) - Nabeel Murillo DO Ordered Studies 10/22/18 07:45 FL cervical 2-3V Routine FL fluoroscopy >1hr Routine Hospital Course (1) Cervical stenosis of spinal canal: Patient underwent anterior cervical discectomy and fusion tolerated this well and went to the orthopedic floor postoperative. No swallowing deficits no hoarseness pain markedly improved. JOLENE drain decreasing appropriately. Subsequent discharge home. Total Time Total Time Spent Total Time Spent (In Minutes): Not applicable Discharge Plan Discharge Items Patient Disposition: Home - Self-Care Reason For Visit: Spinal Stenosis Discharge Diagnosis: cervical stenosis Discharge Goals: Decrease discomfort and Improve function Activity: Per 'Additional Instructions' section Non-emergency contact: Primary Care Provider Call non-emergency contact if: you have any medication questions Follow-up/Referrals: Sheri Rangel MD [Primary Care Provider] - Diet: Regular Addtl Provider Instructions: ACTIVITY RECOMMENDATIONS: SELF CARE INSTRUCTIONS AFTER THORACIC/LUMBAR FUSIONS 1. You may walk to your tolerance. It is good exercise for your legs and back. Expect some back and intermittent leg aches and pains. 2. You may perform "counter-top" level activities (make a sandwich, marcel with a project, etc.). 3. No bending or lifting of more than 10 pounds or back twisting of any nature (roll like a log when turning in bed). 4. You may ride in a car for 20-30 minutes at a time. No driving until after your first visit with your doctor. 5. Frequent changes of position and restricting sitting to 30 minutes at a time will help limit the amount of back spasms and stiffness you may experience. 6. You may discontinue the use of ambulatory aids (cane, crutches, etc.) once your strength and confidence allow. 7. You may grinder setup operator the shower and let water strike your incision when you arrive home at least once daily. Do not take a tub bath, sit in a hot tub or go into a swimming pool until after your first recheck in the office. SPECIAL CARE INSTRUCTIONS: VERY IMPORTANT TO READ AND REVIEW A. Your surgical incision has been closed with a cosmetic suture under the skin that will dissolve in about 6 weeks. In 14 days, you can use a pair of clean scissors and cut the suture that is left outside of the skin at the ends of your incision. 1. The small skin tapes can be removed 7 days after surgery if they have not fallen off by that point. 2. You may keep the wound open to air as much as possible to promote healing after post-op day number 5 unless told otherwise by your doctor. 3. If you think the wound looks like it is becoming infected (redness or worsening drainage) and/or you are experiencing fever, chill or worsening back pain and muscle spasms, contact the office so that we may evaluate you as soon as possible. B. Complications are uncommon, but please contact us if you have any signs or symptoms of: 1. wound infection (fever higher than 102.5 degrees F, redness, separation of wound, drainage, or increasing pain from the incision) 2. blood clots in legs (pain, swelling, redness and warmth in legs) 3. urinary tract infection (fever higher than 102.5 degrees F, burning upon urination or increased frequency of urination) 4. nerve problems (inability to walk on your toes or heels, numbness, loss of bowel or bladder control) 5. any other symptoms that concern you C. Please call the office at if you have any concerns or questions about your operation or recovery. D. No smoking! Smoking drastically decreases the chance of a solid fusion. E. Do not take any anti-inflammatory medications (Indocin, Advil, Motrin, Aspirin, Naprosyn, etc.) as these may inhibit the chance of a solid fusion. Tylenol is okay to take for pain. MANAGING PAIN AFTER SPINAL SURGERY 1. Narcotic medication is intended for short-term use and will be provided for surgical pain. Surgical pain usually lasts for a period of 4-6 weeks. Narcotic medication includes Percocet, Vicodin, Darvocet, Tylenol #3 or Lortab. 2. Longer-term pain is more appropriately treated with non-narcotic medication such as Tylenol ES. 3. Muscle spasm is not appropriately treated with narcotics. Muscle relaxers such as Soma, Flexeril or Skelaxin can be used along with Tylenol ES. 4. Remember that we all live with some "aches and pains". This is not unusual or uncommon after an injury or as we get older. a. Back pain is expected and may include muscle spasms for 4 to 6 weeks after surgery. The pain should gradually improve. If the pain worsens for no apparent reason, please contact the office. b. Intermittent leg pain may also be experienced and should not be concerned about unless it worsens for no apparent reason. If so, please contact the office. 5. We will provide appropriate medication within the normal guidelines of their prescribed use. We will also be very cautious and aware of potential abuse and extended duration of patients' medication needs. a. Pain medications are for your comfort and to assist with sleep and rest so that the tissue can heal. They are not provided in order to return to normal activity and should not be used through the day. To do so or worsening pain at night can result from ongoing tissue damage and development of tolerance to the prescribed medicine. 6. Please allow 2-3 days to process refills. Prescriptions will not be mailed but must be picked up at the office. FOLLOW UP VISIT: Keep your scheduled follow-up appointment. Any questions, please call the office at . ACTIVITY RECOMMENDATIONS: SELF CARE INSTRUCTIONS AFTER CERVICAL FUSIONS 1. No smoking. Smoking drastically decreases the chance of a solid fusion. 2. No bending, lifting more than 5 pounds, or twisting (roll like a log when turning in bed). 3. You may shower 3 days after surgery. Thoroughly dry wound. Do not soak in the tub. 4. Cervical collar: Must be worn at all times including sleeping. You may remove the brace only to bath, eat and if you are sitting in a recliner. 5. Please walk as much as you can for exercise. Gradually increase the distance that you walk as your endurance increases. SPECIAL CARE INSTRUCTIONS: VERY IMPORTANT TO READ AND REVIEW A. Do not take any anti-inflammatory medications (i.e. Indocin, Advil, Aspirin, Naprosyn, Aleve, Motrin, etc.) as these may inhibit the chance of a solid fusion. Tylenol is okay to take. B. Your surgical incision has been closed with a cosmetic suture under the skin that will dissolve in about 6 weeks. In 14 days, you can use a pair of clean scissors and cut the suture that is left outside of the skin at the ends of your incision. C. Complications are uncommon, but please contact us if you have any signs or symptoms of: 1. wound infection (fever higher than 102.5 degrees F, redness, separation of wound, drainage, or increasing pain from the incision) 2. blood clots in legs (pain, swelling, redness and warmth in legs) 3. urinary tract infection (fever higher than 102.5 degrees, burning upon urination or increased frequency of urination) 4. nerve problems (inability to walk on your toes or heels, numbness, loss of bowel or bladder control) 5. any other symptoms that concern you. D. Please call the office at if you have any concerns or questions about your operation or recovery. MANAGING PAIN AFTER SPINAL SURGERY 1. Narcotic medication is intended for short-term use and will be provided for surgical pain. Surgical pain usually lasts for a period of 4-6 weeks. Narcotic medication includes Percocet, Vicodin, Darvocet, Tylenol #3 or Lortab. 2. Longer-term pain is more appropriately treated with non-narcotic medication such as Tylenol ES. 3. Muscle spasm is not appropriately treated with narcotics. Muscle relaxers such as Soma, Flexeril or Skelaxin can be used along with Tylenol ES. 4. Remember that we all live with some "aches and pains". This is not unusual or uncommon after an injury or as we get older. 5. We will provide appropriate medication within the normal guidelines of their prescribed use. We will also be very cautious and aware of potential abuse and extended duration of patients' medication needs. 6. Please allow 2-3 days to process refills. Prescriptions will not be mailed but must be picked up at the office. FOLLOW UP VISIT: Keep your scheduled follow-up appointment. Any questions, please call the office at . Prescriptions: New oxycodone 5 mg Tablet 5 mg PO Q4H PRN (Reason: Pain, Severe) Qty: 30 RF: 0 Continue aspirin [Aspir-Low] 81 mg tablet,delayed release (DR/EC) 81 mg PO QAM RF: 0 buspirone 15 mg tablet 5 mg PO BID RF: 0 aripiprazole [Abilify] 5 mg tablet 5 mg PO QAM RF: 0 hydrochlorothiazide 12.5 mg capsule 12.5 mg PO QAM RF: 0 desvenlafaxine succinate [Pristiq] 25 mg tablet extended release 24 hr 25 mg PO QAM RF: 0 verapamil 40 mg tablet 40 mg PO TID RF: 0 valacyclovir [Valtrex] 500 mg Tablet 500 mg PO DAILY PRN (Reason: BREAKOUTS) RF: 0 dextroamphetamine [Dexedrine Spansule] 5 mg capsule, extended release 5 mg PO TID RF: 0 trazodone 150 mg Tablet 150 mg PO HS RF: 0 prazosin 1 mg Capsule 1 mg PO HS RF: 0 denosumab [Prolia] 60 mg/mL Syringe 1 dose subcut UD RF: 0 Visit Report Forms: [facility] Stand-Alone Forms: [facility] Discharge Orders: Discharge Order (Routine); Ordered 10/23/18 Ordered By: Nabeel Murillo Admission Data Admit Date/Time: 10/22/18 09:16 Attending Provider: Nabeel Murillo Admit Provider: Nabeel Murillo Primary Care Provider: Sheri Rangel Service: Surgical Services Other Interventions: Discharge Summary Assessment (RN) Last Done: 10/23/18 10:23
[2018-10-23 12:30] VITALS: BP 101/67; PULSE 74; TEMP 99.7; O2SAT 98
[2018-10-24] MEDS ORDERED: BISACODYL 5 MG TABEC PO PRN (09:15)
== END 2018-10-23 13:35 | disposition home or self-care (01) | DRG 473 ==
LOC: ASU 05:28 → 3N 09:16